=== PATIENT | male | born 1950 | race Caucasian/White ===

== ENCOUNTER 2017-02-05 10:50 | Day surgery (SDC) | payer OTHER ==
[2017-02-05] MEDS ORDERED: LR 1,000 ML IV ONE (11:07)
[2017-02-05] MEDS ORDERED: ceFAZolin 2 GM/SWFI 2 GM/20 ML SYR IVP ONE (12:13)
--- NOTE | 2017-02-05 12:14 | PDHPUP ---
History & Physical Update H&P update statement: This history and physical update is based on an assessment of the patient which was completed after admission or registration (within 24 hours), but prior to the surgery/procedure. H&P changes: NONE
[2017-02-05] MEDS ORDERED: BACITRACIN 50,000 UNITS/10 ML SYR IRR ONE (12:17)
[2017-02-05] MEDS ORDERED: DEXAMETHASONE 4 MG/ML VIAL ONE ×2 (12:18→13:15)
[2017-02-05] MEDS ORDERED: LIDOCAINE 1% 300 MG/30 ML SDV ONE (12:18)
[2017-02-05] MEDS ORDERED: CYANO/VITAMIN B12 1000 MCG/ML VIAL ONE (12:19)
[2017-02-05] MEDS ORDERED: ROPIVACAINE HCL 150 MG/30 ML INJ ONE ×2 (12:20→12:51)
[2017-02-05] MEDS ORDERED: BUPIVACAINE 0.5% 30 ML SDV ONE (12:20)
--- NOTE | 2017-02-05 12:31 | PDANEPAE ---
ANE History of Present Illness Right neuroma ANE Past Medical History - Cardiovascular History Hx Hypertension: Yes Hx Arrhythmias: No Hx Chest Pain: No Hx Coronary Artery / Peripheral Vascular Disease: Yes Hx CHF / Valvular Disease: No Hx Palpitations: No Cardiovascular History Comment: cad. stents x9. hyperlipidemia - Pulmonary History Hx COPD: No Hx Asthma/Reactive Airway Disease: No Hx Recent Upper Respiratory Infection: No Hx Oxygen in Use at Home: No Hx Sleep Apnea: Yes Sleep Apnea Screening Result - Last Documented: Positive Pulmonary History Comment: chicho positive uses cpap- instructed pt to bring to hospital - Neurologic History Hx Cerebrovascular Accident: No Hx Seizures: No Hx Dementia: No - Endocrine History Hx Diabetes: Yes Hypothyroid: No Hyperthyroid: No Obesity: mild Endocrine History Comment: type 2 - Renal History Hx Renal Disorders: No - Liver History Hx Hepatic Disorders: No - Neurological & Psychiatric Hx Hx Neurological and Psychiatric Disorders: No - Cancer History Hx Cancer: No - Congenital Disorder History Hx Congenital Disorders: No - GI History GERD: mild Hx Gastrointestinal Disorders: Yes Gastrointestinal History Comment: hx of gastritis a year ago. egd - Other Health History Other Health History: wears reading glasses when on the computer - Chronic Pain History Chronic Pain: Yes (right foot) - Surgical History Prior Surgeries: bunionectomy- right. umbilical hernia repair. sinus surgery. cardiac stents x9 ANE Review of Systems Review of Systems: - Exercise capacity METS (RN): 4 METS ANE Patient History - Allergies Allergies/Adverse Reactions: niacin Allergy (Verified 01/29/17 15:26) gets red, hot and prickely - Home Medications Home Medications: Aspirin 12/09/12 [Last Taken 01/29/17] Cosamin Ds Tablet 12/09/12 [Last Taken 02/04/17 21:00] Effient 12/09/12 [Last Taken 01/29/17] Felodipine 12/09/12 [Last Taken 02/04/17 21:00] Metformin Sr 12/09/12 [Last Taken 02/04/17 21:30] Allopurinol 01/29/17 [Last Taken 02/04/17 08:00] GLIPIZIDE 01/29/17 [Last Taken 02/04/17 21:00] Herbals/Supplements -Info Only 01/29/17 [Last Taken 02/04/17] Irbesartan 01/29/17 [Last Taken 02/04/17 21:00] Metoprolol Tartrate 01/29/17 [Last Taken 02/04/17 21:30] - NPO status NPO Since - Liquids (Date): 02/05/17 NPO Since - Liquids (Time): 20:00 NPO Since - Solids (Date): 02/04/17 NPO Since - Solids (Time): 21:45 - Anes Hx Anes Hx: no prior problems - Smoking Hx Smoking Status: Former smoker Marijuana use: No - Alcohol Use Alcohol Use: Occasionally - Family Anes Hx Family Hx Anesthesia Complications: none ANE Labs/Vital Signs - Vital Signs Blood Pressure: 153/78 Heart Rate: 63 Respiratory Rate: 16 O2 Sat (%): 94 Height: 182.88 cm Weight: 108.862 kg ANE Physical Exam - Airway Mouth exam: normal dental/mouth exam - Pulmonary Pulmonary: no respiratory distress - Cardiovascular Cardiovascular: regular rate and rhythym - ASA Status ASA Status: III ANE Anesthesia Plan Anesthesia Plan: MAC Total IV Anesthesia: Yes
[2017-02-05] MEDS ORDERED: MIDAZOLAM 2 MG/2 ML VIAL IVP ONE (12:36)
[2017-02-05] MEDS ORDERED: fentaNYL 100 MCG/2 ML INJ ONE (12:50)
[2017-02-05] MEDS ORDERED: PROPOFOL 200 MG/20 ML VIAL ONE ×4 (12:51→13:31)
[2017-02-05] MEDS ORDERED: ceFAZolin 1 GM VIAL ONE ×2 (13:02)
[2017-02-05] MEDS ORDERED: LIDOCAINE 2% 5 ML SDV ONE (13:15)
[2017-02-05] MEDS ORDERED: ACETAMINOPHEN 500 MG TAB PO PRN (13:33)
[2017-02-05] MEDS ORDERED: ONDANSETRON 4 MG/2 ML VIAL IVP PRN (13:33)
[2017-02-05] MEDS ORDERED: DIAZEPAM 10 MG/2 ML SYR IVP PRN (13:33)
[2017-02-05] MEDS ORDERED: HYDROCODONE/APAP 5/325 TAB PO PRN (13:33)
[2017-02-05] MEDS ORDERED: PROMETHAZINE HCL 25 MG/ML INJ IVP PRN (13:33)
[2017-02-05] MEDS ORDERED: NALOXONE HCL 0.4 MG/ML INJ IVP PRN (13:33)
[2017-02-05] MEDS ORDERED: fentaNYL 100 MCG/2 ML INJ IVP PRN (13:33)
[2017-02-05] MEDS ORDERED: ONDANSETRON 4 MG/2 ML VIAL ONE (13:53)
[2017-02-05] MEDS ORDERED: KETOROLAC 30 MG/1 ML SDV IVP ONE (14:10)
--- NOTE | 2017-02-05 14:17 | POSTOPPROG ---
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
--- NOTE | 2017-02-05 14:20 | POSTANESTH ---
Post Anesthetic Evaluation Cardiovascular Status: Normal, Stable Respiratory Status: Normal, Stable Level of Consciousness/Mental Status: Can Participate in Eval Pain Control: Adequate, Prn Tx Ordered Nausea/Vomiting Control: Adequate, Prn Tx Ordered Complications Possibly Related to Anesthesia: None Noted
[2017-02-05] MEDS ORDERED: KETOROLAC 30 MG/1 ML SDV ONE (14:50)
[2017-02-05 15:05] VITALS: BP 144/56; PULSE 58; RESP 18; TEMP 97.7; O2SAT 92
--- NOTE | 2017-02-06 03:04 | GOP ---
[f rep st] OPERATIVE REPORT DATE OF OPERATION: 02/05/2017 SURGEON: Tiara Brand DPM ANESTHESIA: MAC/light general. ANESTHESIOLOGIST: Meghan Beard MD. PREOPERATIVE DIAGNOSIS: Neuroma of the 3rd intermetatarsal space of the right foot. POSTOPERATIVE DIAGNOSIS: Neuroma of the 3rd intermetatarsal space of the right foot. PROCEDURE PERFORMED: FINDINGS: INDICATIONS: Significant pain in the right foot limiting activities and has been present for many ye ars. He has exhausted conservative treatment efforts and, at this time, Varinder elects to proceed wi surgery involving removal of the neuroma. He did get temporary relief from local cortisone inject ion. DESCRIPTION OF PROCEDURE: The patient was brought into the operating room, placed on the operating r oom table in the supine position, and intravenous sedation was administered by the anesthesiologist. A posterior tibial and peripheral nerve block was obtained utilizing a total of 20 cc of a 1:1:1 mix of 1% lidocaine plain, 0.5% Marcaine plain, and 0.5% ropivacaine. The lower extremity was prepped a nd draped in the usual sterile manner after the limb was elevated and exsanguinated with an Esmarch b andage. An ankle tourniquet was inflated to 240 mmHg and the procedure was begun. Webril padding wa s utilized under the ankle cuff. Attention was directed towards the dorsal aspect of the 3rd intermetatarsal space where a skin incisi on was created carefully and deepened with care of neurovascular structures and cauterized bleeders. Scar tissue was noted in the area of fibrotic tissue. As the incision was deepened a rubbery shiny soft tissue mass consistent with that of a neuroma was identified. Its distal branches were identifi ed and transected extending to the 3rd and 4th digits. The tight intermetatarsal ligament was releas ed to allow for exposure of the proximal nerve stem and then, with careful distal traction on the ner ve, the proximal branch was transected at its most proximal appreciation at the level of the intrinsi c muscles proximal to the level of the metatarsal heads. The soft tissue mass was removed from the w ound in toto and sent to pathology for gross and microscopic examination. Prior to proximal transect ion 1 cc of Marcaine, 1 cc of cyanocobalamin, and 1 cc of Decadron was injected. Ankle tourniquet wa s released and a normal hyperemic response was noted to all digits. Surgicel was utilized to control bleeding, which was then controlled. The wound was copiously irrigated throughout the procedure wit h bacitracin irrigation solution. A separate stab incision was created for exiting of a silastic prudencio in. Subcutaneous closure was achieved with 4-0 Monocryl and the skin was closed with 4-0 Prolene in a horizontal mattress and simple interrupted suture fashion. Dressings include Xeroform, 4x4s, fluff s, and Leo reinforced with tape and an Eduard bandage. The patient tolerated the procedure and anesth esia very well and in the recovery room he was fitted with a cryo cuff, a postoperative shoe, and chapito n control. His and daughter will be providing transportation home. PROCEDURES PERFORMED: Excision of neuroma of the 3rd intermetatarsal space of the right foot. PROGNOSIS: Good. FOLLOWUP: He is to follow up in the office in 2 days for a wound check. /[id number]/MODL
== END 2017-02-05 15:45 | disposition home or self-care (01) ==
LOC: FSGY 10:50
PROVIDERS: ATTEND Podiatrist
PROC: 01BG0ZZ Excision of Tibial Nerve, Open Approach (ICD-10-PCS; principal; 2017-02-05 12:30)
DX: D36.13 Benign neoplasm of peripheral nerves and autonomic nervous system of lower limb, including hip (principal); E11.40 Type 2 diabetes mellitus with diabetic neuropathy, unspecified; I25.10 Atherosclerotic heart disease of native coronary artery without angina pectoris; E78.5 Hyperlipidemia, unspecified; Z95.5 Presence of coronary angioplasty implant and graft; G47.33 Obstructive sleep apnea (adult) (pediatric); Z87.891 Personal history of nicotine dependence
CPT/HCPCS: J0690; J1100; J1885; J2250; J2405; J2704; J2795; J3010

== ENCOUNTER → 2017-02-14 | Outpatient (CLI) | payer OTHER | LOC: FIMAGING 11:40 | PROVIDERS: ATTEND Family Medicine | DX: Z13.29 Encounter for screening for other suspected endocrine disorder (principal); E04.1 Nontoxic single thyroid nodule ==

== ENCOUNTER → 2018-02-11 | Outpatient (CLI) | payer OTHER ==
[~2018-02-11] MED LIST: IOPAMIDOL (ISOVUE 370) 100 ML BTL IV ONE
== END ==
LOC: FIMAGING 14:07
PROVIDERS: ATTEND Internal Medicine Cardiovascular Disease
DX: I71.2 Thoracic aortic aneurysm, without rupture (principal); I51.7 Cardiomegaly; R16.1 Splenomegaly, not elsewhere classified
CPT/HCPCS: 82565-PO; Q9967

== ENCOUNTER → 2018-03-26 | Outpatient (CLI) | payer OTHER, MEDICARE | LOC: CIMAGING 12:30 | PROVIDERS: ATTEND Internal Medicine Cardiovascular Disease | DX: H53.9 Unspecified visual disturbance (principal); E78.5 Hyperlipidemia, unspecified; I25.10 Atherosclerotic heart disease of native coronary artery without angina pectoris; I10 Essential (primary) hypertension | CPT/HCPCS: 93880-PO ==